=== PATIENT | female | born 1950 | race Caucasian/White ===

== ENCOUNTER 2023-12-07 13:40 | Emergency (ER) | payer MEDICARE, OTHER, SELFPAY ==
[2023-12-07 13:54] VITALS: BP 99/73; PULSE 91; RESP 16; TEMP 37; O2SAT 98
[2023-12-07 13:57] VITALS: BP 99/73; PULSE 91; RESP 16; TEMP 37; O2SAT 98
[2023-12-07] MEDS: methylPREDNISolone ACETATE 40 MG/ML VIAL IM (15:06)
--- NOTE | 2023-12-07 18:46 | ED.BACK ---
HPI - Back Pain/Injury General Chief Complaint: Back Pain/Injury Stated Complaint: Lower Back Pain Time Seen by Provider: 12/07/23 14:35 Source: patient, RN notes reviewed and old records reviewed Mode of arrival: ambulatory Limitations: no limitations History of Present Illness HPI Narrative: 73 female to [facility] for complaint of bilateral lower pain that she describes as sudden, sharp hot poker being stabbed into lower back and radiating into bilateral buttocks. 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 Patient denies weakness, bladder changes, bowel changes. Patient appears to be quite uncomfortable sitting in exam room. no acute distress. Related Data Home Medications Medication Instructions Recorded Confirmed simvastatin 20 mg tablet 20 mg PO DAILY 12/07/23 12/07/23 Allergies Allergy/AdvReac Type Severity Reaction Status Date / Time Penicillins Allergy uknown Verified 12/07/23 13:55 Sulfa (Sulfonamide AdvReac Mild Unknown Verified 12/07/23 13:55 Antibiotics) tramadol [From Ultram] AdvReac Mild Itching Verified 12/07/23 13:55 Review of Systems Review of Systems: All systems reviewed & are unremarkable except as noted in HPI and below Constitutional: Constitutional: Reports no additional constitutional complaints Eyes: Eyes: Reports no additional eye complaints ENT: Reports system reviewed and no additional complaints, except as documented Cardiovascular: Cardiovascular: Reports no additional cardiovascular complaints, Denies chest pain and Denies dyspnea Respiratory: Respiratory: Reports no additional respiratory complaints, Denies cough and Denies dyspnea Musculoskeletal: Musculoskeletal: Reports as per HPI, Reports back pain, Denies muscle weakness, Denies numbness, Reports radiating pain into limb and Denies tingling Neurologic: Reports system reviewed and no additional complaints, except as documented Psychiatric: Psychiatric: Reports no additional psychiatric complaints PMFSH Past Medical History Medical History Anxiety Comments At the time of my signature, I reviewed and agree with the nursing past medical, surgical, social, and family history. There is no relevant family history pertinent to the patient complaint. Exam Const: General: cooperative, healthy appearing, comfortable, no acute distress, alert and well nourished Nutritional Appearance: well nourished Orientation/consciousness: patient oriented x3 Limitations: no limitations HENMT: Head: normal to inspection Ears: external ears normal Face/Nose/Sinus: Normal external nose present, Normal nares present, normal facial exam, No erythema and No edema Face and sinus: normal facial exam, no erythema and no edema Mouth: Yes Normal oral and palatal mucosa present Eyes: General: appearance normal, both eyes and all related structures Neck: Neck: normal visual inspection, full ROM and no meningeal signs Lymphatic: no lymphadenopathy noted and no lymphedema noted Chest: Chest palpation & inspection: normal inspection of the chest Resp: Effort & Inspection: normal respiratory effort and able to speak in complete sentences Auscultation: clear to auscultation bilaterally Cardio: Jugular venous distension: no JVD Rate: regular rate Rhythm: regular rhythm Back/Spine/Pelvis: Cervical Spine: cervical ROM normal Thoracic/Lumbar Spine: lumbar spinal tenderness ( More muscular; sciatic like pain bilateral into bilateral buttocks) Skin: General skin exam: normal color, no rashes or lesions noted and turgor normal Neuro: General: patient oriented x3, gait normal, moves all extremities and no meningeal signs Speech: normal speech Gait exam (Neuro): Normal gait present Extrem: General: normal to inspection, full ROM and capillary refill normal Psych: Appearance: grossly normal and well slater
== END 2023-12-07 15:11 | disposition home or self-care (01) ==
PROVIDERS: Emergency Provider Nurse Practitioner Family; PCP Family Medicine
DX: M54.32 Sciatica, left side (principal); M54.31 Sciatica, right side
CPT/HCPCS: 96372; 99213; G0463; J1010